=== PATIENT | female | born 1960 | race Caucasian/White ===

== ENCOUNTER 2018-04-18 13:52 | Day surgery (SDC) | payer OTHER, MEDICAID, SELFPAY ==
--- NOTE | 2018-04-18 | PATH_ITS ---
[facility] Accession Number: [id number] . 01 Material submitted: . PART A: GASTRIC POLYP PART B: GASTRIC EROSION . 02 Diagnosis: A. Stomach, Polyp, Biopsy: Fundic gland polyp. No evidence of Helicobacter on H/E stain. Negative for intestinal metaplasia. Negative for dysplasia and malignancy. . B. Stomach, Erosion, Biopsy: Antral mucosa with mild chronic gastritis. No evidence of Helicobacter on H/E stain. Negative for intestinal metaplasia. Negative for dysplasia and malignancy. MRV/04/20/2018 . 02 Comment: B. A Helicobacter immunohistochemical stain will be performed and the results reported as an addendum. . 02 Electronically signed: . Eugenia Perea MD, Pathologist NPI- [id number] . 01 Gross description: . (A) Received in formalin, labeled gastric polyp, is a fragment of biggs tissue (0.4 x 0.2 x 0.2 cm). Entirely submitted in cassette A1. (B) Received in formalin, labeled gastric erosion, are two fragments of bermudez-biggs tissue (each approximately 0.3 x 0.1 x 0.1 cm). Entirely submitted in cassette B1. ([id number]) /MRV . 02 Microscopic: . . . 02 Pathologist provided ICD-10: R10.9 . 02 CPT . 311096, [id number], [id number] Performed at: 01 [facility] [address], [place], [place] [id number] MD Cody Ha MD Phone: [phone] [facility]formed at: [facility] [address] [place], [place] [id number] MD Eugenia Perea MD Phone: [phone]
[2018-04-18 14:14] VITALS: BP 127/85; PULSE 88; RESP 18; TEMP 36.4; O2SAT 99; BMI 28.7
[2018-04-18] MEDS: SODIUM CHLORIDE 0.9% 1,000 ML 200 ML IV (14:26)
--- NOTE | 2018-04-18 15:05 | PM.PREOP ---
Pre-operative Note Interval Note History & Physical reviewed/Exam performed by Physician: Yes Changes to H&P: No ASA Class (for procedural sedation): II
--- NOTE | 2018-04-18 15:25 | PM.OP.ENDO ---
Operative Date/Time/Diagnoses Date of procedure: 04/18/18 Procedure & Clinicians Study performed: EGD with biopsy Indications: GERD refractory to medical therapy Procedure Notes Procedure in detail: Sedation: Monitored anesthesia care Prior to the procedure, history and physical was performed, and patient medications and allergies were reviewed. Preprocedure nursing history and assessment was reviewed. Patient identification and proposed procedure were verified by the physician and nurse in the procedure room. The physical status of the patient was reassessed after the procedure. After informed consent was obtained including risks, benefits, and alternatives, the scope was passed under direct vision. Throughout the procedure, the patient's blood pressure, pulse, and oxygen saturations were monitored continuously. The upper endoscope was introduced through the mouth and advanced to the 2nd portion of the duodenum. Retroflexion was performed in the stomach. The patient tolerated the procedure well. The entire examined esophagus was normal appearing. The squamocolumnar junction was regular and was located at 33 cm from the incisors. A sliding hiatal hernia was noted. This was 4 cm in length. The crural pinch was located at 37cm. Retroflexion in the stomach revealed a disrupted fundoplication. Multiple sessile polyps were noted in the stomach measuring between 3 mm and 8 mm, these had an endoscopic appearance consistent with fundic gland polyps. This was biopsied. A few linear erosions were noted in the gastric antrum. This was biopsied. The entire examined duodenum was normal appearing. Impression: 4 cm hiatal hernia. Disrupted fundoplication. Gastric polyps, biopsied Gastric erosions, biopsied Normal appearing duodenum Complications: other (No complications. EBL minimal.) Plan for aftercare: Follow-up pathology results Proceed with esophageal function testing Follow-up with Dr. Manzano in GI clinic as previously scheduled Follow an anti-reflux diet and lifestyle Resume home medications Discharged home with escort
[2018-04-18 15:31] VITALS: BP 153/105; PULSE 87; RESP 17; TEMP 36.4; O2SAT 94
== END 2018-04-18 15:50 | disposition home or self-care (01) ==
PROVIDERS: Visit Provider Internal Medicine
PROC: 0DJ08ZZ Inspection of Upper Intestinal Tract, Via Natural or Artificial Opening Endoscopic (ICD-10-PCS; CPT 43235; principal; 2018-04-18 15:00)
DX: K21.9 Gastro-esophageal reflux disease without esophagitis (principal); K44.9 Diaphragmatic hernia without obstruction or gangrene; E11.9 Type 2 diabetes mellitus without complications; F41.9 Anxiety disorder, unspecified; R63.4 Abnormal weight loss
CPT/HCPCS: 43239; 88305; 88342; J2704